=== PATIENT | male | born 1975 | race Two or more races ===

== ENCOUNTER 2017-11-29 16:57 | Emergency (ER) | payer OTHER ==
[~2017-11-29] VITALS: Ht 167.6 cm; Wt 76.2 kg
== END 2017-11-29 21:17 | disposition home or self-care (01) ==
LOC: ER 16:57
DX: S22.31XA Fracture of one rib, right side, initial encounter for closed fracture (principal); S50.01XA Contusion of right elbow, initial encounter; W18.39XA Other fall on same level, initial encounter; Y93.89 Activity, other specified; Y92.098 Other place in other non-institutional residence as the place of occurrence of the external cause; Y99.8 Other external cause status

== ENCOUNTER → 2019-04-22 12:06 | Outpatient (CLI) | payer OTHER | END | disposition home or self-care (01) | LOC: LAB 12:06 | DX: N20.0 Calculus of kidney (principal) ==

== ENCOUNTER 2019-04-25 10:08 | Outpatient (CLI) | payer OTHER | END 2019-04-25 12:35 | disposition home or self-care (01) | LOC: TOM 10:08 | DX: R10.30 Lower abdominal pain, unspecified (principal) ==

== ENCOUNTER 2020-01-04 16:43 | Outpatient (CLI) | payer OTHER | END 2020-01-04 16:54 | disposition home or self-care (01) | LOC: LAB 16:43 | PROVIDERS: ATTEND Urology | DX: R97.20 Elevated prostate specific antigen [PSA] (principal) ==

== ENCOUNTER 2020-01-11 07:17 | Outpatient (CLI) | payer OTHER | END 2020-01-11 07:32 | disposition home or self-care (01) | LOC: SONOGRAMA 07:17 | PROVIDERS: ATTEND Urology | DX: R97.20 Elevated prostate specific antigen [PSA] (principal) ==

== ENCOUNTER 2020-02-29 16:24 | Inpatient (IN) | payer OTHER ==
[~2020-02-29] VITALS: Ht 167.6 cm; Wt 68.9 kg
== END 2020-03-19 10:12 | disposition home or self-care (01) | DRG 708 ==
LOC: O/R 03-16 06:11 → SURH 03-16 06:11
PROVIDERS: ADMIT Urology; ATTEND Urology
PROC: 07BC0ZX Excision of Pelvis Lymphatic, Open Approach, Diagnostic (ICD-10-PCS; 2020-03-16)
PROC: BW21YZZ Computerized Tomography (CT Scan) of Abdomen and Pelvis using Other Contrast (ICD-10-PCS; 2020-03-16)
PROC: 0VT00ZZ Resection of Prostate, Open Approach (ICD-10-PCS; principal; 2020-03-16 07:00)
DX: C61 Malignant neoplasm of prostate (principal); Z20.828 Contact with and (suspected) exposure to other viral communicable diseases

== ENCOUNTER 2021-11-01 16:19 | Outpatient (CLI) | payer OTHER | END 2021-11-01 17:55 | disposition home or self-care (01) | LOC: LAB 16:19 | DX: R31.1 Benign essential microscopic hematuria (principal) ==

== ENCOUNTER 2021-11-07 07:57 | Outpatient (CLI) | payer OTHER | END 2021-11-07 08:12 | disposition home or self-care (01) | LOC: TOM 07:57 | PROVIDERS: ATTEND Urology | DX: C61 Malignant neoplasm of prostate (principal); R31.1 Benign essential microscopic hematuria; I86.1 Scrotal varices ==

== ENCOUNTER 2024-02-29 14:05 | Emergency (ER) | payer OTHER ==
[~2024-02-29] VITALS: Ht 152.4 cm; Wt 71.2 kg
[2024-02-29] MEDS ORDERED: 0.9 % SODIUM CHLORIDE 500 ML IV SCH (16:45)
[2024-02-29 17:01] LABS: HEMATOCRIT 45.2 % (39.0-48.0); HEMOGLOBIN 15.2 g/dL (13-16.00); MEAN CORPUSCULAR HEMOGLOBIN 28.3 pg (27.00-32.0); MEAN CORPUSCULAR HGB CONC 33.7 g/dl (32.0-36.0); PLATELET COUNT 214 K/uL (150-450); RED BLOOD COUNT 5.38 M/uL (4.00-6.00); RED CELL DISTRIBUTION WIDTH 13.4 % (11.5-14.5)
[2024-02-29 17:18] LABS: ALBUMIN 4.3 gm/dL (3.4-5.0); BILIRUBIN TOTAL 0.72 mg/dL (0.3-1.2); CALCIUM 9.5 mg/dL (8.5-10.1); CREATININE SERUM 0.83 mg/dL (0.70-1.30); GFR 99.31; GLOBULINA 4.1 G/DL (2.4-3.5); POTASSIUM 4.44 mEq/L (3.5-5.1); TOTAL PROTEIN 8.4 gm/dL (6.4-8.2)
== END 2024-02-29 22:43 | disposition home or self-care (01) ==
LOC: ER 14:07
PROVIDERS: General Practice
DX: R10.31 Right lower quadrant pain (principal); K76.0 Fatty (change of) liver, not elsewhere classified